=== PATIENT | female | born 1960 | race Caucasian/White ===

== ENCOUNTER 2016-10-08 21:36 | Inpatient (IN) | payer OTHER ==
[~2016-10-08] VITALS: Ht 167.6 cm; Wt 89.6 kg
[~2016-10-08 21:36] MED LIST: DIPH2%T PO; EPIP0.3I IM; GLUCTAB PO; MEDR4PAK3 PO; MULT-65 PO; PROBCAP4 PO; RANI150 PO; TELM20 PO; ZOFR4TAB3 SL
[2016-10-08 21:58] VITALS: BP 144/84; PULSE 77; RESP 18; TEMP 98.3; O2SAT 98
[2016-10-08 22:01] VITALS: BP 144/84; PULSE 77; RESP 18; TEMP 98.3; O2SAT 98
[2016-10-08] MEDS ORDERED: MULTTAB67 PO (22:15)
[2016-10-08] MEDS ORDERED: SODIUM CHLORIDE 0.9% FLUSH 10 ML FLUSH IVF PRN (22:15)
[2016-10-08] MEDS ORDERED: ASPIRIN 325 MG TAB PO ONE (22:15)
[2016-10-08] MEDS ORDERED: DIPH25TA2 PO (22:15)
[2016-10-08] MEDS ORDERED: EPIN1INJ17 IM (22:15)
[2016-10-08] MEDS ORDERED: METF500T PO (22:15)
[2016-10-08] MEDS ORDERED: TELM5TAB PO (22:16)
[2016-10-08] MEDS ORDERED: LACTCAP8 PO (22:16)
[2016-10-08 22:19] VITALS: O2SAT 96
[2016-10-08 22:21] LABS: AUTOMATED NEUTROPHIL # 3.2 TH/MM3 (1.8-7.7); BASOPHIL % 0.3 % (0.0-2.0); EOSINOPHIL # 0.3 TH/MM3 (0-0.4); EOSINOPHIL % 4.3 % (0.0-4.0); HEMATOCRIT 40.8 % (35.0-46.0); HEMO FLAGS DIFF FINAL; LYMPH % 35.1 % (9.0-44.0); LYMPHOCYTE # 2.1 TH/MM3 (1.0-4.8); MEAN CELL VOLUME 82.6 FL (80.0-100.0); MEAN CORPUSCULAR HEMOGLOBIN 28.3 PG (27.0-34.0); MEAN CORPUSCULAR HGB CONC 34.3 % (32.0-36.0); MONO % 8.4 % (0.0-8.0); NEUT % 51.9 % (16.0-70.0); PLATELET COUNT 198 TH/MM3 (150-450); RED BLOOD COUNT 4.95 MIL/MM3 (4.00-5.30); RED CELL DISTRIBUTION WIDTH 12.9 % (11.6-17.2); WHITE BLOOD COUNT 6.1 TH/MM3 (4.0-11.0)
--- NOTE | 2016-10-08 22:28 | PD ---
HPI Chief Complaint: Chest Pain Time Seen by Provider: 21:52 Travel History International Travel<30 days: No Contact w/Intl Traveler<30days: No Traveled to known affect area: No History of Present Illness HPI This 56-year-old female says she been having some episodes in the past week. She has periods where she has a fullness in the lower sternal area associated with labored breathing. She can't clearly related to exertion or any other activity. It is not pleuritic in nature. She does not recall having this before. She has no known history of heart disease. Her mother had rheumatic heart disease. She does have diabetes. She does not smoke. She was started on fenofibrate a month ago because of high triglycerides. The episodes last about 15 minutes and resolved spontaneously. The patient does have a history of diabetes for which she takes metformin. PFSH Past Medical History High Cholesterol: Yes Diabetes: Yes (PT STATES SHE TAKES METFORMIN) Patient Takes Glucophage: Yes (METFORMIN) Diminished Hearing: No GERD: Yes Hypertension: Yes Immunizations Current: No Pneumonia: Yes Tetanus Vaccination: < 5 Years Influenza Vaccination: No ?: Unknown Menopausal: Yes : 7 Para: 5 Miscarriage: 2 Past Surgical History Section: Yes (X1) Cholecystectomy: Yes Gynecologic Surgery: Yes (, ENDOMETRIAL UTERINE ABLATION) Family History Family Hypercholesterolemia: Yes (MOTHER) Social History Alcohol Use: Yes (OCCAS) Tobacco Use: No Substance Use: No Allergies-Medications (Allergen,Severity, Reaction): Coded Allergies: Labetalol (Verified Allergy, Severe, LIVER ISSUES, 10/08/16) Methyldopa (Verified Allergy, Severe, LIVER ISSUES, 10/08/16) Morphine (Verified Allergy, Severe, SWELLING, 10/08/16) Omeprazole (Unverified Allergy, Severe, Hives, 10/08/16) itching Ranitidine (Verified Allergy, Severe, Hives, 10/08/16) Uncoded Allergies: LOVAZA (Adverse Reaction, Severe, 07/14/14) ELEVATED LIVER ENZYMES Reported Meds & Prescriptions Reported Meds & Active Scripts Active Reported Telmisartan 20 Mg Tab 20 Mg PO DAILY Probiotic (Lactobacillus Acidophilus) 1 Cap Cap 1 Cap PO BID Multiple Vitamin 1 Tab 1 Tab PO DAILY Metformin (Metformin HCl) 500 Mg Tab 500 Mg PO BIDPC With meals Epinephrine Inj (Epinephrine) 0.3 Mg/0.3 Ml Pfpen 0.3 Mg IM ONCE PRN Diphenhydramine (Diphenhydramine HCl) 25 Mg Tab 25 Mg PO Q6H PRN Review of Systems General / Constitutional: No: Fever, Chills Eyes: No: Diploplia, Blurred Vision HENT: No: Headaches, Vertigo Cardiovascular: Positive: Chest Pain or Discomfort, No: Palpitations, Irregular Rhythm, Syncope Respiratory: Positive: Shortness of Breath, No: Cough Gastrointestinal: No: Nausea, Vomiting Genitourinary: No: Urgency, Frequency Musculoskeletal: No: Myalgias, Arthralgias Skin: No Rash, No Itching Physical Exam Narrative GENERAL: Well-developed female SKIN: Focused skin assessment warm/dry. HEAD: Atraumatic. Normocephalic. EYES: Pupils equal and round. No scleral icterus. No injection or drainage. ENT: No nasal bleeding or discharge. Mucous membranes pink and moist. NECK: Trachea midline. No JVD. CARDIOVASCULAR: Regular rate and rhythm. No murmur appreciated. RESPIRATORY: No accessory muscle use. Clear to auscultation. Breath sounds equal bilaterally. GASTROINTESTINAL: Abdomen soft, non-tender, nondistended. Hepatic and splenic margins not palpable. MUSCULOSKELETAL: No obvious deformities. No clubbing. No cyanosis. No edema. NEUROLOGICAL: Awake and alert. No obvious cranial nerve deficits. Motor grossly within normal limits. Normal speech. PSYCHIATRIC: Appropriate mood and affect; insight and judgment normal. Data Data Last Documented VS Vital Signs Date Time Temp Pulse Resp B/P Pulse Ox O2 Delivery O2 Flow Rate FiO2 10/08/16 22:22 96 Room Air 10/08/16 22:01 77 18 10/08/16 22:01 98.3 144/84 Orders Electrocardiogram (10/08/16 22:10) Basic Metabolic Panel (Bmp) (10/08/16 22:10) Complete Blood Count With Diff (10/08/16 22:10) Magnesium (Mg) (10/08/16 22:10) Prothrombin Time / Inr (Pt) (10/08/16 22:10) Act Partial Throm Time (Ptt) (10/08/16 22:10) Troponin I (10/08/16 22:10) Chest, Single Ap (10/08/16 22:10) Ecg Monitoring (10/08/16 22:10) Iv Access Insert/Monitor (10/08/16 22:10) Oximetry (10/08/16 22:10) Oxygen Administration (10/08/16 22:10) Aspirin (Aspirin) (10/08/16 22:15) Sodium Chloride 0.9% Flush (Ns Flush) (10/08/16 22:15) Labs Laboratory Tests Test 10/08/16 22:10 White Blood Count 6.1 TH/MM3 Red Blood Count 4.95 MIL/MM3 Hemoglobin 14.0 GM/DL Hematocrit 40.8 % Mean Corpuscular Volume 82.6 FL Mean Corpuscular Hemoglobin 28.3 PG Mean Corpuscular Hemoglobin 34.3 % Concent Red Cell Distribution Width 12.9 % Platelet Count 198 TH/MM3 Mean Platelet Volume 7.9 FL Neutrophils (%) (Auto) 51.9 % Lymphocytes (%) (Auto) 35.1 % Monocytes (%) (Auto) 8.4 % Eosinophils (%) (Auto) 4.3 % Basophils (%) (Auto) 0.3 % Neutrophils # (Auto) 3.2 TH/MM3 Lymphocytes # (Auto) 2.1 TH/MM3 Monocytes # (Auto) 0.5 TH/MM3 Eosinophils # (Auto) 0.3 TH/MM3 Basophils # (Auto) 0.0 TH/MM3 CBC Comment DIFF FINAL Differential Comment MDM Medical Decision Making Medical Screen Exam Complete: Yes Emergency Medical Condition: Yes Medical Record Reviewed: Yes Differential Diagnosis Differential includes coronary artery disease, atypical chest pain, chest pain and GI origin Narrative Course EKG shows normal sinus rhythm Derrell Pretty MD Oct 08, 2016 22:28
[2016-10-08 22:30] LABS: CHLORIDE 106 MEQ/L (98-107); POTASSIUM 3.5 MEQ/L (3.5-5.1); SODIUM (NA) 141 MEQ/L (136-145)
[2016-10-08 22:33] LABS: ANION GAP 7 MEQ/L (5-15); BICARBONATE 27.9 MEQ/L (21.0-32.0); BLOOD UREA NITROGEN 13 MG/DL (7-18); MAGNESIUM 1.7 MG/DL (1.5-2.5)
[2016-10-08 22:36] LABS: APTT (PATIENT) 25.4 SEC (24.3-30.1); PROTHROMBIN TIME - PATIENT 10.5 SEC (9.8-11.6)
[2016-10-08 22:37] LABS: GLOMERULAR FILTRATION RATE 82 ML/MIN (>89)
--- NOTE | 2016-10-08 22:44 | RADRPT ---
EXAM DATE/TIME: 10/08/2016 22:28 [facility] COMPARISON: No previous studies available for comparison. INDICATIONS : Chest pressure, shortness of breath for 24 hours MEDICAL HISTORY : None. SURGICAL HISTORY : None. ENCOUNTER: Initial ACUITY: 1 day PAIN SCORE: 0/10 LOCATION: Bilateral chest FINDINGS: A single view of the chest demonstrates the lungs to be symmetrically aerated without evidence of mas s, infiltrate or effusion. The cardiomediastinal contours are unremarkable. Osseous structures are intact. CONCLUSION: No acute disease. Jai Franklin MD FACR on October 08, 2016 at 22:42 Board Certified Radiologist. This report was verified electronically.
[2016-10-08] MEDS ORDERED: SODIUM CHLORIDE 0.9% FLUSH 10 ML FLUSH IV FLUSH PRN (23:30)
[2016-10-08] MEDS ORDERED: ACETAMINOPHEN/HYDROcodone 325 MG/7.5 MG TAB PO PRN (23:30)
[2016-10-08] MEDS ORDERED: NITROGLYCERIN 0.4 MG SL 25 TABS/BTL SL PRN (23:30)
[2016-10-08] MEDS ORDERED: ACETAMINOPHEN 500 MG CPLT PO PRN (23:30)
[2016-10-08] MEDS ORDERED: ACETAMINOPHEN/HYDROcodone 325 MG/10 MG TAB PO PRN (23:30)
[2016-10-08] MEDS ORDERED: GLUCAGON 1 MG/ML VIAL OTHER PRN (23:30)
[2016-10-08] MEDS ORDERED: ONDANSETRON HCL 4 MG/2 ML VIAL IV PRN (23:30)
[2016-10-08] MEDS ORDERED: DEXTROSE 50% IN WATER 50 ML VIAL(D50) IV PRN (23:30)
[2016-10-09] VITALS (13 sets, daily range): BP systolic 110–134; BP diastolic 70–86; PULSE 59–80; RESP 18–20; TEMP 96.1–97.9; O2SAT 94–99
[2016-10-09 00:03] LABS: CREATINE KINASE 119 U/L (26-192)
[2016-10-09 03:16] LABS: CREATINE KINASE 117 U/L (26-192)
[2016-10-09 03:28] LABS: CKMB 2.1 NG/ML (0.5-3.6)
[2016-10-09] MEDS: INSULIN ASPART SUPPLEMENTAL SCALE SQ SCH ×4 (06:24→21:00)
--- NOTE | 2016-10-09 07:14 | HHI.HP ---
[facility] Admission Diagnosis CHEST PAIN Diagnoses: (1) Chest pain Diagnosis: Principal (2) Hypertension (3) Hyperlipidemia (4) Diabetes Chief Complaint: Chest discomfort Travel History International Travel<30 Days: No Contact w/Intl Traveler <30 Da: No Traveled to Known Affected Are: No History of Present Illness Written by Garrett Shrestha, acting as scribe for Dr. Erazo on 10/09/16 at 09: 46. This note was transcribed by scribe Garrett POE. I, Dr. Inna Erazo personally performed the history, physical exam, and medical decision making; and confirmed the accuracy of the information in the transcribed note. Authenticated by Dr. Inna Erazo on 10/09/16 at 09:46. 56-year-old female with known history of hypertension, hypokalemia, diabetes, family history of heart disease who presented to the hospital because of chest discomfort. Patient states that over the last week she's been having episodes of chest discomfort which she places her hand over the middle part of her chest and states that the discomfort is located there without any radiation to neck, back, shoulder, arm. She has a hard time describing the discomfort other than she states it's like a pressure type sensation that takes her breath away. She is able to breathe there is no shortness of breath, however she does have dyspnea. It usually lasts for 20 seconds at a time and happening one time daily for the last week. She states that she had another episode yesterday that lasted up to 20 minutes. She called her primary medical doctor's office who did not have an appointment for her and notify her if it continued happens she needs to go to the hospital for evaluation. The patient states that she sits down and relaxes that the discomfort goes away on its own. It does not happen during exertion. She denies any nausea, vomiting, diaphoresis, lightheadedness, dizziness. She states that he exercises approximate 5 times weekly. The patient has never underwent any cardiac stress testing. Patient does have increased risk factors for coronary artery disease and is recommended by the ER physician that the patient be observed in the chest pain center for further evaluation. Review of Systems Constitutional: DENIES: Diaphoretic episodes, Fatigue, Fever, Weight gain, Weight loss, Chills, Dizziness, Change in appetite, Night Sweats Eyes: DENIES: Blurred vision, Diplopia, Eye inflammation, Eye pain, Vision loss , Double Vision Ears, nose, mouth, throat: DENIES: Hearing loss, Vertigo, Nasal discharge, Throat pain, Ear Pain, Running Nose, Sinus Pain Respiratory: COMPLAINS OF: Shortness of breath, DENIES: Apneas, Cough, Snoring , Wheezing, Hemoptysis, Sputum production Cardiovascular: COMPLAINS OF: Chest pain, DENIES: Palpitations, Syncope, Dyspnea on Exertion, Lower Extremity Edema, Orthopnea Gastrointestinal: DENIES: Abdominal pain, Black stools, Bloody stools, Constipation, Diarrhea, Nausea, Vomiting, Difficulty Swallowing, Anorexia Neurologic: DENIES: Abnormal gait, Headache, Localized weakness, Paresthesias, Seizures, Speech Problems, Tremor, Poor Balance Psychiatric: DENIES: Anxiety, Confusion, Mood changes, Depression, Hallucinations, Agitation, Suicidal Ideation, Homicidal Ideation, Delusions Past Family Social History Past Medical History Hypertension Hyperlipidemia Diabetes Gastroesophageal reflux Degenerative disc disease Past Surgical History Cholecystectomy Bilateral carpal tunnel surgery Endometrial ablation Reported Medications Reported Meds & Active Scripts Active Reported Telmisartan 20 Mg Tab 20 Mg PO DAILY Probiotic (Lactobacillus Acidophilus) 1 Cap Cap 1 Cap PO BID Multiple Vitamin 1 Tab 1 Tab PO DAILY Metformin (Metformin HCl) 500 Mg Tab 500 Mg PO BIDPC With meals Epinephrine Inj (Epinephrine) 0.3 Mg/0.3 Ml Pfpen 0.3 Mg IM ONCE PRN Diphenhydramine (Diphenhydramine HCl) 25 Mg Tab 25 Mg PO Q6H PRN Allergies: Coded Allergies: Labetalol (Verified Allergy, Severe, LIVER ISSUES, 10/08/16) Methyldopa (Verified Allergy, Severe, LIVER ISSUES, 10/08/16) Morphine (Verified Allergy, Severe, SWELLING, 10/08/16) Omeprazole (Unverified Allergy, Severe, Hives, 10/08/16) itching Ranitidine (Verified Allergy, Severe, Hives, 10/08/16) Uncoded Allergies: LOVAZA (Adverse Reaction, Severe, 07/14/14) ELEVATED LIVER ENZYMES Family History Reviewed is significant for mother with heart disease, myocardial infarction, aunt with breast cancer, father was a smoker and from lung cancer Social History Patient denies any tobacco or illicit drug use. Does drink alcohol occasionally Physical Exam Vital Signs Vital Signs Date Time Temp Pulse Resp B/P Pulse Ox O2 Delivery O2 Flow Rate FiO2 10/09/16 05:36 96.9 60 18 118/72 98 10/09/16 02:15 98 21 10/09/16 00:45 96.8 70 18 132/77 99 10/09/16 00:31 71 18 98 10/09/16 00:00 71 18 110/71 98 Room Air 10/08/16 22:22 96 Room Air 10/08/16 22:19 96 10/08/16 22:01 77 18 98 Room Air 10/08/16 22:01 98.3 77 18 144/84 98 Room Air 10/08/16 21:58 98.3 77 18 144/84 98 Physical Exam GENERAL: Well-developed, well-nourished, in no acute distress. alert and orientated HEENT: Head is normocephalic without any lesions or masses noted. Facial features are symmetric. Eyes: Pupils equal round reactive to light. Extraocular muscles are intact. Conjunctivae were clear. Oropharyngeal: Pharynx without any erythema edema. Tongue is midline without deviation. Buccal mucosa is moist without any masses or lesions NECK: Supple without any masses. Trachea midline no deviation. No JVD, no bruits are appreciated CARDIAC: Regular rhythm, regular rate. S1/S2 are heard. No murmurs gallops or rubs. LUNGS: Clear to auscultation bilaterally. No wheeze, rhonchi or rales. No use of accessory muscles on inspiration or expiration. ABDOMEN: Soft, nontender. Nondistended. Bowel sounds heard in all 4 quadrants. No organomegaly or masses. Negative rebound, negative guarding EXTREMITIES: No edema, pulses are equal bilaterally. No cyanosis or clubbing NEUROLOGY: Mood and affect appear appropriate. Cranial nerves II through XII grossly intact. Muscle strength 5/5 in upper and lower extremities bilaterally. Deep tendon reflexes are 2+ in upper and lower extremities bilaterally. Laboratory Laboratory Tests Test 10/08/16 10/08/16 10/09/16 22:10 23:40 02:20 White Blood Count 6.1 Red Blood Count 4.95 Hemoglobin 14.0 Hematocrit 40.8 Mean Corpuscular Volume 82.6 Mean Corpuscular Hemoglobin 28.3 Mean Corpuscular Hemoglobin 34.3 Concent Red Cell Distribution Width 12.9 Platelet Count 198 Mean Platelet Volume 7.9 Neutrophils (%) (Auto) 51.9 Lymphocytes (%) (Auto) 35.1 Monocytes (%) (Auto) 8.4 Eosinophils (%) (Auto) 4.3 Basophils (%) (Auto) 0.3 Neutrophils # (Auto) 3.2 Lymphocytes # (Auto) 2.1 Monocytes # (Auto) 0.5 Eosinophils # (Auto) 0.3 Basophils # (Auto) 0.0 CBC Comment DIFF FINAL Differential Comment Prothrombin Time 10.5 Prothromb Time International 1.0 Ratio Activated Partial 25.4 Thromboplast Time Sodium Level 141 Potassium Level 3.5 Chloride Level 106 Carbon Dioxide Level 27.9 Anion Gap 7 Blood Urea Nitrogen 13 Creatinine 0.74 Estimat Glomerular Filtration 82 Rate Random Glucose 252 Calcium Level 9.4 Magnesium Level 1.7 Troponin I LESS THAN 0.02 LESS THAN 0.02 LESS THAN 0.02 Total Creatine Kinase 119 117 Creatine Kinase MB 2.0 2.1 Result Diagram: 10/08/16220910/08/162209 Imaging Last Impressions Chest X-Ray 10/08/162209 Signed Impressions: Service Date/Time: Saturday, October 08, 2016 22:28 - CONCLUSION: No acute disease. Jai Franklin MD FACR Assessment and Plan Assessment and Plan 56-year-old female who presented with chest pressure Chest pain Patient with increased risk factors include age, hypertension, hyponatremia, diabetes, family history of heart disease Patient had been ruled out for acute coronary event with serial cardiac enzymes have remained negative Serial EKGs show sinus rhythm with nonspecific ST-T changes without any acute changes Exercise stress test was interpreted by Dr. Thomas. He indicates this is a positive stress test and because of her presenting symptoms the patient should be admitted with cardiology consultation. Continue oxygen, aspirin, nitroglycerin as needed, Wells as needed for pain Consult cardiology Hypertension Blood pressure stable Continue home medications Hyperlipidemia Patient is on fenofibrate at home Obtain lipid panel Diabetes Accu-Cheks with sliding scale insulin DVT prevention Sequential compression devices Discussed Condition With Dr. Thomas, patient, at bedside Problem Qualifiers (1) Chest pain: (2) Hypertension: Qualified Code: I15.8 - Other secondary hypertension (3) Hyperlipidemia: Qualified Code: E78.5 - Hyperlipidemia, unspecified hyperlipidemia type (4) Diabetes: Qualified Code: E11.8 - Type 2 diabetes mellitus with complication, without long-term current use of insulin Garrett Shrestha Oct 09, 2016 07:14 Inna Erazo MD Oct 09, 2016 12:47
[2016-10-09] MEDS: ASPIRIN 325 MG TAB PO SCH (09:32)
[2016-10-09] MEDS: LOSARTAN 25 MG TAB PO SCH (09:32)
[2016-10-09] MEDS: SODIUM CHLORIDE 0.9% FLUSH 10 ML FLUSH IV FLUSH SCH ×2 (09:32→21:00)
--- NOTE | 2016-10-09 11:54 | TR ---
Date Performed: 10/09/2016 Time Performed: 10:02:00 DOCTOR: Tapan Thomas DRUG LIST: CLINICAL HISTORY: REASON FOR TEST: REASON FOR ENDING: Completed Protocol OBSERVATION: Chest Pain: None CONCLUSION: Patient tolerated BENJAMÍN protocol with Total Exercise Time=6:01 Maximum BZ=004 % Max HR Achieved=88.0% Maximum SH=328/84, Testing stopped secondary to goals acheived. Patient had mild fl at slow upsloping ST depressions prior to starting procedure, did improve mildly upon starting proced ure. During peak exercise, patient had flat slow upsloping ST depressed segments in inferior lateral leads. patient was asymptomatic during exercise, frequent PVC's noted. HR and BP appropriate response to exercise. Recovery period, patient still with mild flat, slow upsloping St segments, Patient stil l asymptomatic. more frequent PVC's until HR returned to baseline, then no observed PVC's. BP returne d to baseline COMMENTS: POSITIVE STUDY WITH DOWNSLOPING ST SEGMENTS WORSTENING WITH EXERCISE IN A PATIENT WITH RISK FACTORS AND INTERMITTANT CP.
[2016-10-09 14:07] LABS: HDL CHOLESTEROL 48.3 MG/DL (40.0-60.0)
--- NOTE | 2016-10-09 15:27 | EKG ---
Date Performed: 10/09/2016 Time Performed: 07:19:35 PTAGE: 56 years EKG: SINUS BRADYCARDIA NONSPECIFIC ST & T-WAVE ABNORMALITY BORDERLINE ECG PREVIOUS TRACING : 10/09/2016 02.31 Compared to prior tracing no significant change DOCTOR: Paul Ayala Interpretating Date/Time 10/09/2016 15:25:53
--- NOTE | 2016-10-09 15:48 | EKG ---
Date Performed: 10/09/2016 Time Performed: 02:31:03 PTAGE: 56 years EKG: Sinus rhythm MODERATE INTRAVENTRICULAR CONDUCTION DELAY NONSPECIFIC ST & T-WAVE ABNORMALITY BORDERLINE ECG PREVIOUS TRACING : 10/08/2016 23.43 Compared to prior tracing no significant change DOCTOR: Paul Ayala Interpretating Date/Time 10/09/2016 15:46:40
--- NOTE | 2016-10-09 16:03 | EKG ---
Date Performed: 10/08/2016 Time Performed: 23:43:56 PTAGE: 56 years EKG: Sinus rhythm NONSPECIFIC ST & T-WAVE ABNORMALITY BORDERLINE ECG PREVIOUS TRACING : 10/08/2016 22.04 Compared to prior tracing no significant change DOCTOR: Paul Ayala Interpretating Date/Time 10/09/2016 16:02:21
--- NOTE | 2016-10-09 16:11 | EKG ---
Date Performed: 10/08/2016 Time Performed: 22:04:02 PTAGE: 56 years EKG: Sinus rhythm MINIMAL ST DEPRESSION BORDERLINE ECG Compared to the PREVIOUS TRACING from 06/27/99, no significant change DOCTOR: Paul Ayala Interpretating Date/Time 10/09/2016 16:09:30
--- NOTE | 2016-10-09 16:58 | MB ---
cc: JAMILAH HOLLIDAY MD DATE OF CONSULTATION 10/09/16 REASON FOR CONSULTATION Atypical chest pain and abnormal exercise treadmill test. HISTORY OF PRESENT ILLNESS The patient is a very pleasant 56-year woman with no prior cardiac history who for the last week or so has had symptoms which she describes as a "dropping feeling in her chest" lasting typically that 10 minutes and seemed to be associated with eating. She did not have any significant symptoms during her water aerobics or other physical activity. Yesterday, she had these symptoms which lasted longer than her prior episodes which were happening on a daily basis. This most recent episode was over 20 minutes and she presented to the emergency department, ruled out for AK and then underwent an exercise treadmill test without nuclear imaging. The treadmill EKG did show accentuation of her baseline EKG changes to about [address] changes with PVCs seen in recovery. The patient did not have any chest pain at all or reproduction of her symptoms during her treadmill test. Currently, the patient is asymptomatic denying any residual symptoms. She does not truly have chest pain, just the aforementioned dropping sensation with some shortness of breath at the time, no lightheadedness, dizziness or syncope. PAST MEDICAL HISTORY 1. Hypertension, 2. Diabetes, 3. Obesity. MEDICATIONS Current 1. Aspirin 325 mg daily. 2. Cozaar 25 mg daily. ALLERGIES LABETALOL METHYLDOPA MORPHINE OMEPRAZOLE RANITIDINE PHYSICAL EXAMINATION VITAL SIGNS: Afebrile, pulse 67, respiratory rate 18, BP 134/83, satting 94 on room air. GENERAL: A Pleasant, obese woman in no distress. NECK: No JVD. LUNGS: Clear to auscultation bilaterally. CARDIOVASCULAR: Regular rate and rhythm. No murmurs appreciated. ABDOMEN: Benign. EXTREMITIES: No edema. LABORATORY DATA White count 6.1, hematocrit 40.8, platelets 198. Sodium 141, potassium 2.5, chloride 106, bicarb 27.9, BUN 13, creatinine 0.74, glucose 252. Cardiac enzymes are negative x3. LDL is 113, triglycerides 253. CARDIOLOGY STUDIES EKG shows sinus rhythm with diffuse though nonspecific ST changes. Treadmill test is as detailed above. IMPRESSION AND PLAN Abnormal exercise treadmill test with atypical chest pain. I discussed these findings at length with the patient. They wish to forego a nuclear stress test in lieu of direct cardiac catheterization. I do think this is reasonable, particularly given the patient's body habitus which will predispose to a false positive nuclear stress test anyway or at least that would have enough attenuation artifact which could cloud the issue. I did also explain to the patient that it is certainly possible she could have coronary disease which is not responsible for her symptoms and they understand this fact. I will have her transferred [facility] and my colleague, Dr. Ayala, will plan for cardiac catheterization Tuesday morning or sooner should the clinical condition warrant. Thank you again for the opportunity to participate in this patient's care. MD MAGDI Valentin/ /3:49 PM /4:55 PM
[2016-10-10] VITALS (7 sets, daily range): BP systolic 116–154; BP diastolic 68–88; PULSE 61–72; RESP 18–20; TEMP 96.7–98.2; O2SAT 95–99
--- NOTE | 2016-10-10 09:32 | ECHRPT ---
Indication: Chest pain, unspecified CONCLUSIONS Normal left ventricular size and wall thickness. The left ventricular systolic function is normal wi th an estimated ejection fraction in the range of 60-65%. Left ventricular diastolic function parameters a re normal. Mild aortic valve regurgitation. Mild mitral valve regurgitation. BP: / HR: 75 Rhythm: Sinus MEASUREMENTS (Male / Female) Normal Values Technical Quality:Fair 2D ECHO LV Diastolic Diameter PLAX 5.2 cm 4.2 - 5.9 / 3.9 - 5.3 cm LV Systolic Diameter PLAX 4.0 cm IVS Diastolic Thickness 0.9 cm 0.6 - 1.0 / 0.6 - 0.9 cm LVPW Diastolic Thickness 0.9 cm 0.6 - 1.0 / 0.6 - 0.9 cm LV Relative Wall Thickness 0.3 LVOT Diameter 2.0 cm M-MODE Aortic Root Diameter MM 3.2 cm LA Systolic Diameter MM 3.2 cm LA Ao Ratio MM 1.0 AV Cusp Separation MM 2.1 cm DOPPLER AV Peak Velocity 148.0 cm/s AV Peak Gradient 8.8 mmHg AI Peak Velocity 444.5 cm/s AI Peak Gradient 79.0 mmHg AI Pressure Half Time 626.0 ms LVOT Peak Velocity 107.0 cm/s LVOT Peak Gradient 4.6 mmHg AV Area Cont Eq pk 2.3 cm MR Peak Velocity 448.5 cm/s MR Peak Gradient 80.5 mmHg Mitral E Point Velocity 87.4 cm/s Mitral A Point Velocity 94.8 cm/s Mitral E to A Ratio 0.9 LV E' Lateral Velocity 6.7 cm/s Mitral E to LV E' Lateral Ratio 13.0 LV E' Septal Velocity 6.0 cm/s Mitral E to LV E' Septal Ratio 14.5 PV Peak Velocity 97.7 cm/s PV Peak Gradient 3.8 mmHg FINDINGS LEFT VENTRICLE Normal left ventricular size and wall thickness. The left ventricular systolic function is normal wi th an estimated ejection fraction in the range of 60-65%. Left ventricular diastolic function parameters a re normal. RIGHT VENTRICLE Normal right ventricular size and systolic function. LEFT ATRIUM The left atrial size is normal. RIGHT ATRIUM The right atrial size is normal. ATRIAL SEPTUM Normal atrial septal thickness without atrial level shunting by limited color doppler interrogation. AORTA The aortic root and proximal ascending aorta are normal in size on limited imaging. MITRAL VALVE Mild mitral valve regurgitation. AORTIC VALVE Mild aortic valve regurgitation. TRICUSPID VALVE Structurally normal tricuspid valve. No tricuspid valve stenosis or regurgitation. PULMONARY VALVE The pulmonary valve is not well visualized. VESSELS The inferior vena cava is normal in size. PERICARDIUM No pericardial effusion. Henri Montana MD (Electronically Signed) Final Date:10 October 2016 09:31
[2016-10-10] MEDS: ASPIRIN 325 MG TAB PO SCH (09:41)
[2016-10-10] MEDS: LOSARTAN 25 MG TAB PO SCH (09:41)
[2016-10-10] MEDS: SODIUM CHLORIDE 0.9% FLUSH 10 ML FLUSH IV FLUSH SCH ×2 (09:42→21:22)
[2016-10-10] MEDS: INSULIN ASPART SUPPLEMENTAL SCALE SQ SCH ×3 (10:54→21:00)
--- NOTE | 2016-10-10 11:49 | HHI.PR ---
Subjective Remarks Seen earlier today. Patient says she did not have any chest luke overnight. She experienced some chest pain last night. No sob, diaphoresis , nausea or lightheadedness. No fever or chills. No cough. Says she was not able to sleep last night and she would like to have a sleeping aid at night Objective Vitals Vital Signs Date Time Temp Pulse Resp B/P Pulse Ox O2 Delivery O2 Flow Rate FiO2 10/10/16 08:00 97.4 65 18 136/85 98 10/10/16 05:34 98.2 66 20 129/79 98 10/10/16 00:00 96.7 61 18 116/68 99 10/09/16 20:00 97.9 63 20 118/70 98 10/09/16 19:58 67 10/09/16 16:00 97.8 73 18 134/86 95 10/09/16 15:00 80 10/09/16 12:00 96.3 67 18 134/83 94 10/09/16 11:48 97 I/O 10/09/16 10/09/16 10/09/16 10/10/16 10/10/16 10/10/16 07:00 15:00 23:00 07:00 15:00 23:00 Intake Total 0 ml 240 ml 240 ml Output Total 2 ml Balance 0 ml 240 ml 238 ml Intake Oral 0 ml 240 ml 240 ml Output Urine Total 2 ml Stool Total 0 ml # Voids 2 2 5 # Bowel Movements 0 3 Result Diagram: 10/08/16220910/08/162209 Imaging Last Impressions Chest X-Ray 10/08/162209 Signed Impressions: Service Date/Time: Saturday, October 08, 2016 22:28 - CONCLUSION: No acute disease. Jai Franklin MD FACR Objective Remarks GENERAL: Very pleasant 56 yo F, well-developed, well-nourished, in no acute distress. alert and orientated CARDIAC: Regular rhythm, regular rate. S1/S2 are heard. No murmurs gallops or rubs. LUNGS: Clear to auscultation bilaterally. No wheeze, rhonchi or rales. No use of accessory muscles on inspiration or expiration. ABDOMEN: Soft, nontender. Nondistended. Bowel sounds heard in all 4 quadrants. No organomegaly or masses. Negative rebound, negative guarding EXTREMITIES: No edema, pulses are equal bilaterally. No cyanosis or clubbing NEUROLOGY: Mood and affect appear appropriate. Cranial nerves II through XII grossly intact. Muscle strength 5/5 in upper and lower extremities bilaterally. Deep tendon reflexes are 2+ in upper and lower extremities bilaterally. A/P Problem List: (1) Chest pain ICD Code: R07.9 Status: Acute (2) Hypertension ICD Code: I10 Status: Acute (3) Hyperlipidemia ICD Code: E78.5 Status: Acute (4) Diabetes ICD Code: E11.9 Status: Acute Assessment and Plan 56-year-old female who presented with chest pressure Chest pain Patient with increased risk factors include age, hypertension, hyponatremia, diabetes, family history of heart disease Patient had been ruled out for acute coronary event with serial cardiac enzymes have remained negative Serial EKGs show sinus rhythm with nonspecific ST-T changes without any acute changes Exercise stress test was interpreted by Dr. Thomas. He indicates this is a positive stress test and because of her presenting symptoms the patient should be admitted with cardiology consultation. Continue oxygen, aspirin, nitroglycerin as needed, [place] as needed for pain Consult cardiology, recommends cardiac cath. Transfer patient to [facility]. Keep NPO overnight plan for cardiac cath on 10/11 Hypertension Blood pressure stable Continue home medications Hyperlipidemia Patient is on fenofibrate at home Obtain lipid panel Diabetes Accu-Cheks with sliding scale insulin DVT prevention Sequential compression devices Discussed Condition With Patient, nurse, /family at bedside Problem Qualifiers (1) Chest pain: (2) Hypertension: Qualified Code: I15.8 - Other secondary hypertension (3) Hyperlipidemia: Qualified Code: E78.5 - Hyperlipidemia, unspecified hyperlipidemia type (4) Diabetes: Qualified Code: E11.8 - Type 2 diabetes mellitus with complication, without long-term current use of insulin Inna Erazo MD Oct 10, 2016 11:49 Inna Erazo MD Oct 10, 2016 11:49
[2016-10-10] MEDS ORDERED: TEMAZEPAM 15 MG CAP PO PRN (12:15)
--- NOTE | 2016-10-10 17:17 | PD.CARD.PN ---
Subjective Subjective Remarks Pt feels well, no cp since last night Objective Medications Administered Medications Medications (Trade) Dose Ordered Sig/Sky Route PRN Reason Start Time Stop Time Status Last Admin Dose Admin Sodium Chloride (NS Flush) 2 ml BID IV FLUSH 10/09/16 09:00 10/10/16 09:42 Nitroglycerin (Nitrostat Sl) 0.4 mg Q5M PRN SL CHEST PAIN 10/08/16 23:30 10/09/16 17:15 Aspirin (Aspirin) 325 mg DAILY PO 10/09/16 09:00 10/10/16 09:41 Losartan Potassium (Cozaar) 25 mg DAILY PO 10/09/16 09:00 10/10/16 09:41 Vital Signs / I&O Vital Signs Date Time Temp Pulse Resp B/P Pulse Ox O2 Delivery O2 Flow Rate FiO2 10/10/16 12:00 97.5 68 18 123/74 98 10/10/16 08:00 97.4 65 18 136/85 98 10/10/16 05:34 98.2 66 20 129/79 98 10/10/16 00:00 96.7 61 18 116/68 99 10/09/16 20:00 97.9 63 20 118/70 98 10/09/16 19:58 67 I/O 10/09/16 10/09/16 10/09/16 10/10/16 10/10/16 10/10/16 07:00 15:00 23:00 07:00 15:00 23:00 Intake Total 0 ml 240 ml 240 ml Output Total 2 ml Balance 0 ml 240 ml 238 ml Intake Oral 0 ml 240 ml 240 ml Output Urine Total 2 ml Stool Total 0 ml # Voids 2 2 5 # Bowel Movements 0 3 Physical Exam GENERAL: This is a well-nourished, well-developed patient, in no apparent distress. CARDIOVASCULAR: Regular rate and rhythm without murmurs, gallops, or rubs. RESPIRATORY: Clear to auscultation. Breath sounds equal bilaterally. No wheezes , rales, or rhonchi. GASTROINTESTINAL: Abdomen soft, non-tender, nondistended. Normal active bowel sounds MUSCULOSKELETAL: Extremities without clubbing, cyanosis, or edema. NEURO: Alert & Oriented x4 to person, place, time, situation. Moves all ext x4 Imaging Last Impressions Chest X-Ray 7/7/17 2210 Signed Impressions: Service Date/Time: Saturday, October 08, 2016 22:28 - CONCLUSION: No acute disease. Jai Franklin MD FACR Assessment and Plan Problem List: (1) Chest pain Assessment and Plan: added low dose imdur and norvasc for dual anti-anginals ( alg to labetalol); doing well since last night. (2) Abnormal ECG during exercise stress test Assessment and Plan: for Cath tomorrow Problem Qualifiers (1) Chest pain: Henri Montana MD Oct 10, 2016 17:17
[2016-10-10] MEDS ORDERED: PILL SPLITTER OTHER PRN (17:30)
[2016-10-11] VITALS: BP 160/104; PULSE 90; RESP 20; TEMP 99; O2SAT 97
[2016-10-11 04:00] VITALS: BP 121/87; PULSE 71; RESP 20; TEMP 98.2; O2SAT 95
[2016-10-11] MEDS ORDERED: ISOSORBIDE MONONITRATE 30 MG TAB PO SCH (07:00)
[2016-10-11] MEDS: INSULIN ASPART SUPPLEMENTAL SCALE SQ SCH (07:00)
[2016-10-11] MEDS: ASPIRIN 325 MG TAB PO SCH (08:17)
[2016-10-11] MEDS: LOSARTAN 25 MG TAB PO SCH (08:17)
[2016-10-11] MEDS: SODIUM CHLORIDE 0.9% FLUSH 10 ML FLUSH IV FLUSH SCH (08:18)
[2016-10-11 08:41] VITALS: BP 120/78; PULSE 60; RESP 19; TEMP 96.4; O2SAT 96
--- NOTE | 2016-10-11 08:41 | HHI.PR ---
Subjective Remarks Patient was transferred to the main hospital for cath . No events reported overnight. Objective Vitals Vital Signs Date Time Temp Pulse Resp B/P Pulse Ox O2 Delivery O2 Flow Rate FiO2 10/11/16 04:00 98.2 71 20 121/87 95 10/10/16 23:58 69 10/10/16 20:00 97.8 72 20 123/88 95 10/10/16 16:00 97.0 70 18 154/80 99 10/10/16 12:00 97.5 68 18 123/74 98 I/O 10/10/16 10/10/16 10/10/16 10/11/16 10/11/16 10/11/16 07:00 15:00 23:00 07:00 15:00 23:00 Intake Total 240 ml 1250 ml 1200 ml 0 ml Output Total 2 ml Balance 238 ml 1250 ml 1200 ml 0 ml Intake Oral 240 ml 1250 ml 1200 ml 0 ml Output Urine Total 2 ml Stool Total 0 ml # Voids 5 6 2 3 # Bowel Movements 3 2 0 0 Result Diagram: 10/08/16220910/08/162209 Objective Remarks GENERAL: Very pleasant 56 yo F, well-developed, well-nourished, in no acute distress. alert and orientated CARDIAC: Regular rhythm, regular rate. S1/S2 are heard. No murmurs gallops or rubs. LUNGS: Clear to auscultation bilaterally. No wheeze, rhonchi or rales. No use of accessory muscles on inspiration or expiration. ABDOMEN: Soft, nontender. Nondistended. Bowel sounds heard in all 4 quadrants. No organomegaly or masses. Negative rebound, negative guarding EXTREMITIES: No edema, pulses are equal bilaterally. No cyanosis or clubbing NEUROLOGY: Mood and affect appear appropriate. Cranial nerves II through XII grossly intact. Muscle strength 5/5 in upper and lower extremities bilaterally. Deep tendon reflexes are 2+ in upper and lower extremities bilaterally. A/P Problem List: (1) Chest pain ICD Code: R07.9 Status: Acute (2) Hypertension ICD Code: I10 Status: Acute (3) Hyperlipidemia ICD Code: E78.5 Status: Acute (4) Diabetes ICD Code: E11.9 Status: Acute Assessment and Plan 56-year-old female who presented with chest pressure Chest pain Patient with increased risk factors include age, hypertension, hyponatremia, diabetes, family history of heart disease Patient had been ruled out for acute coronary event with serial cardiac enzymes have remained negative Serial EKGs show sinus rhythm with nonspecific ST-T changes without any acute changes Exercise stress test was interpreted by Dr. Thomas. He indicates this is a positive stress test and because of her presenting symptoms the patient should be admitted with cardiology consultation. Continue oxygen, aspirin, nitroglycerin as needed, [place] as needed for pain Consult cardiology, recommends cardiac cath. Transfer patient to [facility]. Keep NPO overnight plan for cardiac cath on 10/11 Hypertension Blood pressure stable Continue home medications Hyperlipidemia Patient is on fenofibrate at home Obtain lipid panel Diabetes Accu-Cheks with sliding scale insulin DVT prevention Sequential compression devices Discussed Condition With Patient, nurse, /family at bedside Problem Qualifiers (1) Chest pain: (2) Hypertension: Qualified Code: I15.8 - Other secondary hypertension (3) Hyperlipidemia: Qualified Code: E78.5 - Hyperlipidemia, unspecified hyperlipidemia type (4) Diabetes: Qualified Code: E11.8 - Type 2 diabetes mellitus with complication, without long-term current use of insulin Inna Erazo MD Oct 11, 2016 08:41
[2016-10-11] MEDS ORDERED: amLODIPine BESYLATE 5 MG TAB PO SCH (09:00)
[2016-10-11] MEDS ORDERED: HEPARIN-NS/PF INJ 500 ML ONE (11:36)
[2016-10-11] MEDS ORDERED: MIDAZOLAM HCL 2 MG/2 ML VIAL ONE (12:01)
--- NOTE | 2016-10-11 12:07 | CATHPROC ---
[employer] HIS Report Study Information Study Number Admission Scheduled Start Study Start [id number] Oct 08 2016 11:26PM 10/10/2016 Oct 11 2016 11:14AM [place] [facility] Cardiac Catheterization Admit Source Facility Department Emergency department [facility] - [facility] Physician and Clinical Staff Initial MD Ayala, Paul Sawmill Moulder Operatorpetar Mittal RN, Yoel Sawmill Moulder OperatorBryanna Hanna BSRN Recorder Sis Gayle,(R) (BS) Scrub Fernie Gonzalez RCIS(BS) Procedures Performed Procedure Location (Site) Vessel Name Coronary Angiograms LCA Left Coronary Coronary Angiograms RCA Right Coronary L Heart Cath Equipment Time Event Sales Assistant Description Size Mfg Part Number Used/Scraped TRANSDUCER, TRUWAVE [id number] 11:19 CHAWLA ZELAYA * Used W/STOCKCOCK *[id number] *[id number] *[id number] 11:19 Vello App PACK, CCL CUSTOM * Used *[id number] 11:19 Vello App SUPPORT, ARTERIAL ADULT [id number] Used BAND, RADIAL COMPRESSION TR [id number] 11:58 Tipp24 MEDICAL 24CM Used SHORT 24 *[id number] 11:19 Instant Opinion WIRE, EXCHANGE 260CM 3MMJ 260CM Used *[id number] 11:19 NAMIC MANIFOLD, 4 PORT * Used *[id number] 11:19 NYCOMED OMNIPAQUE, 350 MG, 150ML 150ML [id number] Used [id number] 11:19 [employer] MEDICAL BLANKET,WARM AIR CCL * Used *[id number] SHEATH, FR6 TRANSRADIAL 11:19 GoodChime! MEDICAL FR 6 [id number] Used SLENDER 10CM History: Current Medications Medication Dosage/Unit Route Frequency Last Date/Time Taken Beta Sanchez Statins (any) ASA History: Allergies Allergy Reaction Labetalol LIVER ISSUES Methyldopa LIVER ISSUES Morphine SWELLING Omeprazole Hives Ranitidine Hives LOVAZA History: Risk Factors Family History of Hypertension Dyslipidemia Previous MN Previous Heart Failure Premature CAD Yes Yes Yes No No Prior Valve Prior PCI Prior CABG Surgery No No No Cerebrovascular Peripheral Artery Chronic Lung On Dialysis Diabetes Diabetes Therapy Disease Disease Disease No No No No Yes Oral History: Stress Tests Stress or Imaging Studies Performed Yes Standard Exercise Stress Test No Stress Echo No Stress Test SPECT Yes Stress Test CMR No Cardiac CTA Coronary Calcium Score No No History: Other Current Smoker No Labs Hgb (g/dl) Hct (%) WBC (l/cumm) Platelets (thousands) 11.60-17.00 35.00-51.00 4.00-11.00 150.00-450.00 14.0 40.8 6.1 148 Glucose (mg/dl) BUN (mg/dl) Creatinine (mg/dl) BUN:Creatinine (1:x) 74.00-106.00 7.00-18.00 0.50-1.30 10.00-20.00 252 13 0.7 18.6 Na (meq/l) K (meq/l) 136.00-145.00 3.50-5.10 144 3.5 INR (PTT:PT) 0.90-1.10 1 Troponin I (ng/ml) CPK-MB (ng/ML) 0.02-0.05 0.50-3.60 0.02 Not Drawn Medication Medication Total Dose (Bolus/Oral) Medication Total Dosage/Unit 1% XYLOCAINE 1 mL FENTANYL 50 mcg RADIAL COCKTAIL 1 units VERSED 1 mg Medications (Bolus/Oral) Medication Time Given Dosage/Unit Administered By Reason VERSED 10/11/2016 11:40:07 AM 0.5 mg Rittenour, Bryanna 0.5 mg VERSED given in lab by Bryanna Rush BSRN in Left Antecubital via Peripheral IV. FENTANYL 10/11/2016 11:41:16 AM 25 mcg Rittenour, Bryanna 25 mcg FENTANYL given in lab by Bryanna Rush BSRN in Left Antecubital via Peripheral IV. 1% XYLOCAINE 10/11/2016 11:42:33 AM 1 mL Paul Ayala 1 mL 1% XYLOCAINE given in lab by Paul Ayala in Right Radial via Subcutaneous. VERSED 10/11/2016 11:44:32 AM 0.5 mg Rittenour, Bryanna 0.5 mg VERSED given in lab by Bryanna Rush BSRN in Left Antecubital via Peripheral IV. Ntg 200mcg Verapamil 2.5mg Heparin RADIAL COCKTAIL 10/11/2016 11:44:32 AM 1 units Paul Ayala 3000U 1 units RADIAL COCKTAIL given in lab by Paul Ayala via Radial. Reason: Ntg 200mcg Verapamil 2. 5mg 3600 Heparin FENTANYL 10/11/2016 11:45:56 AM 25 mcg Bryanna Rush 25 mcg FENTANYL given in lab by Bryanna Rush BSRN in Left Antecubital via Peripheral IV. Medication (Drip) Medication Time Given Dosage/Unit Concentration/Unit Diluent (ml) Solution IV Solutions 10/11/2016 11:15:25 AM 0 mL (IV) 500 NaCl .9 IV Solutions given in lab by Yoel Mittal RN in Left Antecubital via Peripheral IV. Pump/Drip Flow = 20 ml/hr using NaCl .9. Initial Case Assessment Cardiovascular HR Rhythm NIBP Chest Pain 72 reg 127/73 0 Edema Present Skin color Skin None Normal Warm Dry Circulatory - Right Pulses Dorsalis Pedis Femoral Radial 1 1 1 Scale (0,1,2,3,4,d) Scale (0,1,2,3,4,d) Circulatory - Lower Extremities Color Lower Right Color Lower Left Normal Normal Neurological State Oriented to time-place- Alert Moves all extremities person Respiration - General Respiration Rate SpO2 (%) (B/min) 8 99 Chronological Log Time Study Chronological Log 11:15:08 Patient arrived via Bed. 11:15:09 Patient Name, D.O.B, / Armband Verified By R.N. 11:15:10 Consent signed by the physician and the patient and verified by the [facility] staff. 11:15:11 Pre-op and post- op instructions given; patient acknowledges understanding of instruction s. 11:15:12 Verbal Stimulation=2 Physical Stimulation=2 Airway=2 Respiration=2 TOTAL=8. (0=absent, 1= limited, 2=present) 11:15:13 Presedation assessment performed by Music [facility] RN. 11:15:16 Allens test performed on the right radial and ulnar artery. 11:15:20 Patient has been NPO for More than 6Hrs. 11:15:21 Skin Breakdown none per pt 11:15:22 Patient Warmer Placed on the Table. 11:15:24 Maida Prominences Protected 11:15:24 A # 20 IV was noted in the Antecubital (left). Grade = 0 IV Solutions given in lab by Yoel Mittal RN in Left Antecubital via Peripheral IV. Pump/Drip Flow = 20 ml/hr using NaCl 11:15:25 .9. 11:15:26 History and physical on the chart or being dictated. Assessment: Initial Case, HR=72 BPM, Rhythm=reg, EIDF=329/73 mmhg, Chest Pain=0, Edema=None, Co meg=Normal, Skin = Warm, Dry Right Pulses: Jason Ped=1, Femoral=1, Radial=1 11:15:27 Lower Right Extremities: Color=Normal Lower Left Extremities: Color=Normal Neurological: State=Alert, Ox3, MARTEL Respiration: Resp=8 B/min, SpO2=99 % Vitals capture started with the following parameters, Patient=Adult, Interval=5 min, Initial Pr qqltpd=590 mmHg, 11:20:16 Deflation Rate=5 mmHg 11:20:56 FKHN=624/73 mmhg, SpO2=98.0 %, Pain=0, Alex=10, Watters=2 11:22:51 Reference ECG taken 11:25:49 HR=77 bpm, XASO=171/82 mmhg, SpO2=99.0 %, Resp=21 B/min, Pain=0, Alex=10, Watters=2 11:30:05 Right groin and right radial prepped with 2% chlorhexidine, and with a 3 min. waiting time. 11:30:52 HR=65 bpm, QNCL=796/72 mmhg, SpO2=99.0 %, Resp=11 B/min, Pain=0, Alex=10, Watters=2 11:36:28 HR=65 bpm, KKFT=170/66 mmhg, EjP1=769.0 %, Resp=9 B/min, Pain=0, Alex=10, Watters=2 11:37:54 Pressure channel 1 zeroed. Time Out. Correct patient, correct procedure,correct physician, power injector not loaded with contrast with surgical 11:39:55 team present. Time Out Concurred by MD, individual staff in procedure 11:40:07 0.5 mg VERSED given in lab by Bryanna Rush BSRN in Left Antecubital via Peripheral IV. 11:40:25 Case Start 11:40:50 HR=83 bpm, OWPO=584/86 mmhg, SpO2=99.0 %, Resp=9 B/min, Pain=0, Alex=10, Watters=2 11:41:16 25 mcg FENTANYL given in lab by Bryanna Rush BSRN in Left Antecubital via Peripheral I V. 11:42:33 1 mL 1% XYLOCAINE given in lab by Paul Ayala in Right Radial via Subcutaneous. 11:43:36 Access site was right Radial Artery. A SHEATH, FR6 TRANSRADIAL SLENDER 10CM FR 6 was advanced into the Radial (right) using the Perc utaneous 11:43:48 technique. 11:44:32 0.5 mg VERSED given in lab by Bryanna Rush BSRN in Left Antecubital via Peripheral IV. 1 units RADIAL COCKTAIL given in lab by Paul Ayala via Radial. Reason: Ntg 200mcg Verapa mil 2.5mg 3600 11:44:32 Heparin 11:45:55 HR=83 bpm, XQKA=833/80 mmhg, DsH2=311.0 %, Resp=6 B/min, Pain=0, Alex=10, Watters=2 11:45:56 25 mcg FENTANYL given in lab by Bryanna Rush BSRN in Left Antecubital via Peripheral I V. A JR 4.0 INFINITI CATHETER FR 5 was advanced over a wire. OMNIPAQUE, 350 MG, 150ML 150ML was us ed for 11:46:03 injections. Recorded Pressure: LV, HR=78, Condition=Condition 1 11:47:01 (Left Ventricle) LV 113/5/7 Recorded Pressure: LV, Ao, HR=76, Condition=Condition 1 11:47:12 (Left Ventricle) LV 114/5/8, (Aorta) Ao 129/79/100 11:47:41 The RCA was injected and visualized at various angles. OMNIPAQUE, 350 MG, 150ML 150ML used . Recorded Pressure: Ao, HR=71, Condition=Condition 1 11:47:49 (Aorta) Ao 109/74/90 After removing the current catheter a JL 3.5 INFINITI CATHETER FR 5 was advanced over a WIRE, E XCHANGE 260CM 11:48:33 3MMJ 260CM. 11:50:45 The LCA was injected and visualized at various angles. OMNIPAQUE, 350 MG, 150ML 150ML used . 11:50:50 HR=70 bpm, BLVV=371/64 mmhg, SpO2=98.0 %, Resp=8 B/min, Pain=0, Alex=10, Watters=2 11:51:58 Catheter was removed 11:56:28 HR=66 bpm, VETY=687/73 mmhg, SpO2=99.0 %, Resp=9 B/min, Pain=0, Alex=10, Watters=2 Radial Compression Device Used. 10 mLs of air placed in BAND, RADIAL COMPRESSION TR SHORT 24 24 CM. Affected 11:57:01 hand 100 % O2 saturation. 11:58:02 Case End 11:58:20 No case complications noted. 11:58:29 Cine recording checked. 11:58:31 Bedside Report will be given. 11:58:35 Contrast Scanned 11:58:37 A Left Heart Cath was performed. 11:58:44 DOCU called. Spoke to [place] 11:58:55 Catheter(s) removed without difficulty 12:02:[facility] - Contrast Media Used In Study Contrast Total Opened (mL) Total Used (mL) Total Wasted (mL) Omnipaque 25 25 0 End Study - Maximum Contrast Load Max Contrast Load (mL) 639.9 End Study - Radiation Exposure Fluoro Time (minutes) 1.9 End Study - Sheaths Sheaths Pulled By Sheath Hold Time (min) Paul Ayala End Study - Patient Disposition Complications Transferred To Interventional Outcome No [facility] Holding No attempt made
[2016-10-11] MEDS ORDERED: MISC INFORMATION XX ONE (12:15)
[2016-10-11] MEDS ORDERED: VERAPAMIL HCL 5 MG/2 ML VIAL ONE (12:39)
[2016-10-11] MEDS ORDERED: NITROGLYCERIN INJ 5 ML ONE (12:40)
[2016-10-11] MEDS ORDERED: HEPARIN SODIUM - IV 10,000 UNITS/10 ML VIAL ONE (12:40)
[2016-10-11] MEDS ORDERED: ISOS30TA3 PO (12:50)
[2016-10-11] MEDS ORDERED: AMLO5 PO (12:50)
[2016-10-11] MEDS ORDERED: ASPI81CH25 CHEW (12:50)
[2016-10-11] MEDS ORDERED: NITR0.4S SL (12:50)
--- NOTE | 2016-10-11 12:50 | HHI.DS ---
Discharge Summary Admission Date Oct 09, 2016 at 12:00 Discharge Date: Oct 11, 2016 Admitting Diagnosis CHEST PAIN (1) Chest pain ICD Code: R07.9 Diagnosis: Principal (2) Hypertension ICD Code: I10 Diagnosis: Secondary (3) Hyperlipidemia ICD Code: E78.5 Diagnosis: Secondary (4) Diabetes ICD Code: E11.9 Diagnosis: Secondary Procedures cardiac cath 10/11/16 Brief History - From Admission Written by Garrett Shrestha, acting as scribe for Dr. Erazo on 10/09/16 at 09: 46. This note was transcribed by scribKalee POE. I, Dr. Inna Erazo personally performed the history, physical exam, and medical decision making; and confirmed the accuracy of the information in the transcribed note. Authenticated by Dr. Inna Erazo on 10/09/16 at 09:46. 56-year-old female with known history of hypertension, hypokalemia, diabetes, family history of heart disease who presented to the hospital because of chest discomfort. Patient states that over the last week she's been having episodes of chest discomfort which she places her hand over the middle part of her chest and states that the discomfort is located there without any radiation to neck, back, shoulder, arm. She has a hard time describing the discomfort other than she states it's like a pressure type sensation that takes her breath away. She is able to breathe there is no shortness of breath, however she does have dyspnea. It usually lasts for 20 seconds at a time and happening one time daily for the last week. She states that she had another episode yesterday that lasted up to 20 minutes. She called her primary medical doctor's office who did not have an appointment for her and notify her if it continued happens she needs to go to the hospital for evaluation. The patient states that she sits down and relaxes that the discomfort goes away on its own. It does not happen during exertion. She denies any nausea, vomiting, diaphoresis, lightheadedness, dizziness. She states that he exercises approximate 5 times weekly. The patient has never underwent any cardiac stress testing. Patient does have increased risk factors for coronary artery disease and is recommended by the ER physician that the patient be observed in the chest pain center for further evaluation. CBC/BMP: 10/08/16220910/08/162209 Significant Findings Laboratory Tests Test 10/08/16 10/08/16 10/09/16 22:10 23:40 02:20 Monocytes (%) (Auto) 8.4 % (0.0-8.0) Eosinophils (%) (Auto) 4.3 % (0.0-4.0) Estimat Glomerular Filtration 82 ML/MIN (>89) Rate Random Glucose 252 MG/DL (74-106) Troponin I LESS THAN 0.02 LESS THAN 0.02 LESS THAN 0.02 NG/ML NG/ML NG/ML (0.02-0.05) (0.02-0.05) (0.02-0.05) Triglycerides Level 253 MG/DL (42-150) Cholesterol Level 212 MG/DL (120-200) LDL Cholesterol 113 MG/DL (0-99) Imaging Last Impressions Chest X-Ray 10/08/162209 Signed Impressions: Service Date/Time: Saturday, October 08, 2016 22:28 - CONCLUSION: No acute disease. Jai Franklin MD FACR PE at Discharge GENERAL: Very pleasant 56 yo F, well-developed, well-nourished, in no acute distress. alert and orientated CARDIAC: Regular rhythm, regular rate. S1/S2 are heard. No murmurs gallops or rubs. LUNGS: Clear to auscultation bilaterally. No wheeze, rhonchi or rales. No use of accessory muscles on inspiration or expiration. ABDOMEN: Soft, nontender. Nondistended. Bowel sounds heard in all 4 quadrants. No organomegaly or masses. Negative rebound, negative guarding EXTREMITIES: No edema, pulses are equal bilaterally. No cyanosis or clubbing NEUROLOGY: Mood and affect appear appropriate. Cranial nerves II through XII grossly intact. Muscle strength 5/5 in upper and lower extremities bilaterally. Deep tendon reflexes are 2+ in upper and lower extremities bilaterally. Pt update on day of discharge No events reported overnight. Patient was transferred to the main hospital for cath. Per cardiology patient had a clean cath and is cleared for DC . Patient feels comfortable to go home. Hospital Course 56-year-old female who presented with chest pressure Chest pain Patient with increased risk factors include age, hypertension, hyponatremia, diabetes, family history of heart disease Patient had been ruled out for acute coronary event with serial cardiac enzymes have remained negative Serial EKGs show sinus rhythm with nonspecific ST-T changes without any acute changes Exercise stress test was interpreted by Dr. Thomas. He indicates this is a positive stress test and because of her presenting symptoms the patient should be admitted with cardiology consultation. Continue oxygen, aspirin, nitroglycerin as needed, [place] as needed for pain Consult cardiology, recommends cardiac cath. Transfer patient to [facility]. Keep NPO overnight plan for cardiac cath on 10/11. S/P cardiac cath clean per cardiology. Patient to be discharge home to follow up as OP with PCP and consultants. Hypertension Blood pressure stable Continue home medications Hyperlipidemia Patient is on fenofibrate at home Obtain lipid panel Diabetes Accu-Cheks with sliding scale insulin DVT prevention Sequential compression devices Improved, had a clean cath , cleared by cardio for DC . To follow up as OP with PCP and consultants. Pt Condition on Discharge: Stable Discharge Disposition: Discharge Home Discharge Time: > 30 minutes Discharge Instructions DIET: Follow Instructions for: Heart Healthy Diet Activities you can perform: Regular-No Restrictions Follow up Referrals: Cardiology - 2 Weeks PCP Follow-up - 3-5 Days New Medications: Amlodipine (Norvasc) 5 Mg Tab 2.5 MG PO DAILY Blood Pressure Management #30 TAB Aspirin (Aspirin Low Strength) 81 Mg Chew 81 MG CHEW DAILY Blood Clot Prevention #30 EA Isosorbide Mononitrate ER (Isosorbide Mononitrate ER) 30 Mg Flakita 30 MG PO DAILY@07 Blood Pressure Management #30 TAB Nitroglycerin SL (Nitrostat SL) 0.4 Mg Subl 0.4 MG SL Q5M PRN CHEST PAIN #30 PATCH Continued Medications: Diphenhydramine (Diphenhydramine) 25 Mg Tab 25 MG PO Q6H PRN ALLERGIES Ref 0 TAB Epinephrine Inj (Epinephrine Inj) 0.3 Mg/0.3 Ml Pfpen 0.3 MG IM ONCE PRN ALLERGIC REACTION #1 Ref 0 PEN Lactobacillus Acidophilus (Probiotic) 1 Cap Cap 1 CAP PO BID Nutritional Supplement #90 Ref 0 CAP Metformin (Metformin) 500 Mg Tab 500 MG PO BIDPC With meals Blood Sugar Management #60 Ref 0 TAB Multiple Vitamin (Multiple Vitamin) 1 Tab 1 TAB PO DAILY Nutritional Supplement Ref 0 TAB Telmisartan (Telmisartan) 20 Mg Tab 20 MG PO DAILY Blood Pressure Management #30 Ref 0 TAB Inna Erazo MD Oct 11, 2016 12:50
--- NOTE | 2016-10-11 13:50 | HHI.DCPOC ---
Discharge Care Plan Diagnosis: (1) Chest pain (2) Hypertension Goals to Promote Your Health * To prevent worsening of your condition and complications * To maintain your health at the optimal level Directions to Meet Your Goals Take your medications as prescribed Follow your dietary instruction Follow activity as directed Keep your appointments as scheduled Take your immunizations and boosters as scheduled If your symptoms worsen call your PCP, if no PCP go to Urgent Care Center or Emergency Room Smoking is Dangerous to Your Health. Avoid second hand smoke Call the 24-hour hour crisis hotline for domestic abuse at Alicia Starkey MD Oct 11, 2016 13:50
--- NOTE | 2016-10-11 13:54 | HHI.DS ---
Discharge Summary Admission Date Oct 09, 2016 at 12:00 Discharge Date: Oct 11, 2016 Admitting Diagnosis CHEST PAIN (1) Chest pain ICD Code: R07.9 Diagnosis: Principal (2) Hypertension ICD Code: I10 Diagnosis: Secondary (3) Hyperlipidemia ICD Code: E78.5 Diagnosis: Secondary (4) Diabetes ICD Code: E11.9 Diagnosis: Secondary Procedures cardiac cath 10/11/16 Brief History - From Admission 56-year-old female with known history of hypertension, hypokalemia, diabetes, family history of heart disease who presented to the hospital because of chest discomfort. Patient states that over the last week she's been having episodes of chest discomfort which she places her hand over the middle part of her chest and states that the discomfort is located there without any radiation to neck, back, shoulder, arm. She has a hard time describing the discomfort other than she states it's like a pressure type sensation that takes her breath away. She is able to breathe there is no shortness of breath, however she does have dyspnea. It usually lasts for 20 seconds at a time and happening one time daily for the last week. She states that she had another episode yesterday that lasted up to 20 minutes. She called her primary medical doctor's office who did not have an appointment for her and notify her if it continued happens she needs to go to the hospital for evaluation. The patient states that she sits down and relaxes that the discomfort goes away on its own. It does not happen during exertion. She denies any nausea, vomiting, diaphoresis, lightheadedness, dizziness. She states that he exercises approximate 5 times weekly. The patient has never underwent any cardiac stress testing. Patient does have increased risk factors for coronary artery disease and is recommended by the ER physician that the patient be observed in the chest pain center for further evaluation. CBC/BMP: 10/08/16220910/08/162209 Significant Findings Laboratory Tests Test 10/08/16 10/08/16 10/09/16 22:10 23:40 02:20 Monocytes (%) (Auto) 8.4 % (0.0-8.0) Eosinophils (%) (Auto) 4.3 % (0.0-4.0) Estimat Glomerular Filtration 82 ML/MIN (>89) Rate Random Glucose 252 MG/DL (74-106) Troponin I LESS THAN 0.02 LESS THAN 0.02 LESS THAN 0.02 NG/ML NG/ML NG/ML (0.02-0.05) (0.02-0.05) (0.02-0.05) Triglycerides Level 253 MG/DL (42-150) Cholesterol Level 212 MG/DL (120-200) LDL Cholesterol 113 MG/DL (0-99) Imaging Last Impressions Chest X-Ray 10/08/160 Signed Impressions: Service Date/Time: Saturday, October 08, 2016 22:28 - CONCLUSION: No acute disease. Jai Franklin MD FACR PE at Discharge GENERAL: Very pleasant 56 yo F, well-developed, well-nourished, in no acute distress. alert and orientated CARDIAC: Regular rhythm, regular rate. S1/S2 are heard. No murmurs gallops or rubs. LUNGS: Clear to auscultation bilaterally. No wheeze, rhonchi or rales. No use of accessory muscles on inspiration or expiration. ABDOMEN: Soft, nontender. Nondistended. Bowel sounds heard in all 4 quadrants. No organomegaly or masses. Negative rebound, negative guarding EXTREMITIES: No edema, pulses are equal bilaterally. No cyanosis or clubbing NEUROLOGY: Mood and affect appear appropriate. Cranial nerves II through XII grossly intact. Muscle strength 5/5 in upper and lower extremities bilaterally. Deep tendon reflexes are 2+ in upper and lower extremities bilaterally. Pt update on day of discharge f/u for chest pain patient seen after cardiac catheterization. she stated she feels a lot better. Denied any CP, SOB, palpitations, or lightheadedness/dizziness. Hospital Course 56-year-old female who presented with chest pressure Chest pain Patient with increased risk factors include age, hypertension, hyponatremia, diabetes, family history of heart disease Patient had been ruled out for acute coronary event with serial cardiac enzymes have remained negative Serial EKGs show sinus rhythm with nonspecific ST-T changes without any acute changes Exercise stress test was interpreted by Dr. Tohmas. He indicates this is a positive stress test and because of her presenting symptoms the patient should be admitted with cardiology consultation. patient had cardiac catheterization which was a clean cath. Hypertension patient was started on amlodipine. Hyperlipidemia Patient is on fenofibrate at home l Diabetes Accu-Cheks with sliding scale insulin Pt Condition on Discharge: Stable Discharge Disposition: Discharge Home Discharge Time: <= 30 minutes Discharge Instructions DIET: Follow Instructions for: Heart Healthy Diet Activities you can perform: Regular-No Restrictions Follow up Referrals: Cardiology - 2 Weeks PCP Follow-up - 3-5 Days New Medications: Amlodipine (Norvasc) 5 Mg Tab 2.5 MG PO DAILY Blood Pressure Management #30 TAB Continued Medications: Diphenhydramine (Diphenhydramine) 25 Mg Tab 25 MG PO Q6H PRN ALLERGIES Ref 0 TAB Epinephrine Inj (Epinephrine Inj) 0.3 Mg/0.3 Ml Pfpen 0.3 MG IM ONCE PRN ALLERGIC REACTION #1 Ref 0 PEN Lactobacillus Acidophilus (Probiotic) 1 Cap Cap 1 CAP PO BID Nutritional Supplement #90 Ref 0 CAP Metformin (Metformin) 500 Mg Tab 500 MG PO BIDPC With meals Blood Sugar Management #60 Ref 0 TAB Multiple Vitamin (Multiple Vitamin) 1 Tab 1 TAB PO DAILY Nutritional Supplement Ref 0 TAB Telmisartan (Telmisartan) 20 Mg Tab 20 MG PO DAILY Blood Pressure Management #30 Ref 0 TAB Alicia Starkey MD Oct 11, 2016 13:54
[2016-10-11] MEDS ORDERED: IOHEXOL 350 MG/ML 50 ML BTL (for Cath Lab) OTHER ONE (15:55)
--- NOTE | 2016-10-12 07:34 | MB ---
cc: PAUL CASTANEDA DO DATE OF CONSULTATION October 11, 2016 REASON FOR CONSULTATION Interventional cardiology consideration of cardiac catheterization. HISTORY OF PRESENT ILLNESS Asha Carmona is a pleasant 56-year-old female who presented to [facility] Emergency Room due to chest pain on October 08, 2016. She states that she gets a feeling that her heart drops out of her chest which lasts about 10 minutes. The feeling seems to be associated with after eating. She does not associate the symptoms with water aerobics or other physical activity. The other day before arriving to the hospital she states that the episode lasted for over 20 minutes. It was decided that she should undergo treadmill exercise stress testing and during this her nonspecific ST-T wave changes were accentuated to about 1-mm downsloping ST-T wave changes. She was also found to have PVCs in recovery. Because of this she was recommended cardiac catheterization. PAST MEDICAL HISTORY 1. Hypertension. 2. Diabetes mellitus. 3. Obesity. PAST SURGICAL HISTORY 1. Cholecystectomy. 2. . 3. Bilateral carpal tunnel surgery. 4. Endometrial ablation. ALLERGIES LOVAZA LABETALOL. METHYLDOPA. MORPHINE. OMEPRAZOLE. RANITIDINE. MEDICATIONS 1. Telmisartan 20 mg daily. 2. Probiotics b.i.d. 3. Metformin 500 mg b.i.d. 4. Norvasc 2.5 mg daily. 5. Diphenhydramine 25 mg every 6 hours as needed for allergies. FAMILY HISTORY Denies premature coronary artery disease or sudden cardiac within the family. SOCIAL HISTORY The patient denies tobacco or illicit drug abuse. She does drink occasionally. REVIEW OF SYSTEMS 14-systems were reviewed including osteopathic pertinent positives and negatives above, otherwise negative. PHYSICAL EXAMINATION VITAL SIGNS: Temperature 96.4, heart rate 60, blood pressure 120/78, respirations 19, pulse ox 96% on room air. IN GENERAL: The patient appears well, in no acute distress, alert, awake and oriented x 3. Extraocular muscles intact. Mucous membranes moist. NECK: Supple. No JVD at 45 degrees. No carotid bruits heard bilaterally. Carotid upstrokes brisk in nature. HEART: Regular rate and rhythm. Positive first and second heart sounds with no noted murmurs, gallops or rubs. PMI is nondisplaced. LUNGS: Clear to auscultation bilaterally. No wheezes, rales or rhonchi. ABDOMEN: Soft, nontender, nondistended. No organomegaly noted. EXTREMITIES: No clubbing, cyanosis or edema. Femoral and distal pulses intact bilaterally. NEUROLOGICALLY: No focal deficits. OSTEOPATHICALLY: No kyphoscoliosis. Mild lordosis. No paraspinal tender points. LABORATORY FINDINGS Hemoglobin 14.0, hematocrit 40.8, platelets 198, potassium 3.5, BUN 13, creatinine 0.74, magnesium 1.7. Total cholesterol 212, LDL 113, HDL 48.3, triglycerides 253. IMPRESSIONS 1. Atypical chest pain. 2. Abnormal exercise nuclear stress test with 1-mm ST depressions, downsloping in multiple leads. 3. Hypertension 4. Diabetes mellitus. RECOMMENDATIONS 1. Ms. Carmona originally presented with atypical chest pain and because of this she was recommended stress testing. During stress testing, she was found to have 1-mm downsloping ST changes in multiple leads. I agree with recommendation by Dr. [place] to consider nuclear stress testing but the patient does not want to have this and wants to undergo cardiac catheterization. 2. The risks, benefits and alternatives were explained to her about cardiac catheterization and/or intervention and she consents as such. 3. We will plan a right radial approach. 4. If no significant disease is found, should consider GI workup as it appears that the episodes happened post-meal. 5. Further recommendations will be made after coronary visualization. Paul Castaneda DO VGP/SSB /10:59 PM /7:12 AM
--- NOTE | 2016-10-12 08:02 | MA ---
cc: PAUL CASTANEDA DO DATE 10/11/2016 PROCEDURE Left heart catheterization, coronary angiogram, moderate sedation 15 minutes. PREPROCEDURE DIAGNOSIS Abnormal stress test, chest pain. POSTPROCEDURE DIAGNOSIS Minimal coronary artery disease. MEDICATIONS 1. Verapamil 2.5 mg 2. Nitro 200 mcg 3. Heparin 3600 units 4. Versed 1 mg 5. Fentanyl 20/650 mcg CONTRAST 25 cc FLUOROSCOPY 1.9 minutes ANESTHESIA Moderate sedation 15 minutes ESTIMATED BLOOD LOSS 10 cc PROCEDURAL SUMMARY Asha Carmona is a pleasant 56-year-old female who originally presented with chest pain. She underwent exercise stress testing and during this she had ST depressions and recommended further workup. She was offered nuclear stress testing, but denied and so recommendation was for cardiac catheterization. The risks, benefits, and alternatives were explained to her and she consents as such. She was brought to the lab and prepped in the usual sterile fashion. The right radial artery was accessed using a modified Seldinger technique and placement of a 5/6 Cymro slender sheath. This was easily aspirated and flushed. JR-4 catheter was advanced over a J-wire to the ascending aorta and across the aortic valve for measurement of left ventricular pressures. This was pulled back across the aortic valve showing no significant gradient of aortic stenosis. JR-4 was used for selective angiography of the right coronary system. This was exchanged out for a JL-3.5 which was used for selective angiography of the left coronary system. JL-3.5 was removed over a J-wire. A radial band was placed across the arteriotomy site for hemostasis. The patient left the [facility] cardiovascularly stable. FINDINGS Left main normal size vessel with good reflux. No significant disease noted. It bifurcates into an LAD and circumflex. LAD normal-size vessel with 20% ostial stenosis. Overall, no significant disease throughout. It has two major diagonals with no significant disease. Left circumflex is a large vessel which is dominant in nature. It has no significant disease. It gives off three major obtuse marginals as well as the PDA. Overall, the obtuse marginals and PDA had no significant disease. RCA is a nondominant vessel with no significant disease. IMPRESSION 1. Atypical chest pain. 2. Minimal coronary artery disease as above. RECOMMENDATIONS 1. Asha Carmona presented with atypical chest pain and underwent cardiac catheterization with minimal disease as above. 2. She will be discharged today per the primary team. 3. She may need a gastrointestinal workup as her symptoms appears to correlate more with eating and this can be done in the outpatient setting. Thank you for allowing me to see Asha Carmona. If there are any questions, please do not hesitate to call. Paul Castaneda DO VGP/DJL /11:35 PM /7:59 AM
--- NOTE | 2016-10-12 08:56 | TR ---
Date Performed: 10/09/2016 Time Performed: 10:02:00 DOCTOR: Tapan Thomas DRUG LIST: CLINICAL HISTORY: REASON FOR TEST: REASON FOR ENDING: Completed Protocol OBSERVATION: Chest Pain: None CONCLUSION: Patient tolerated BENJAMÍN protocol with Total Exercise Time=6:01 Maximum NI=186 % Max HR Achieved=88.0% Maximum HJ=376/84, Testing stopped secondary to goals acheived. Patient had mild fl at slow upsloping ST depressions prior to starting procedure, did improve mildly upon starting proced ure. During peak exercise, patient had flat slow upsloping ST depressed segments in inferior lateral leads. patient was asymptomatic during exercise, frequent PVC's noted. HR and BP appropriate response to exercise. Recovery period, patient still with mild flat, slow upsloping St segments, Patient stil l asymptomatic. more frequent PVC's until HR returned to baseline, then no observed PVC's. BP returne d to baseline COMMENTS: POSITIVE STUDY WITH DOWNSLOPING ST SEGMENTS WORSTENING WITH EXERCISE IN A PATIENT WITH RISK FACTORS AND INTERMITTANT CP.
[2016-10-12] MEDS ORDERED: ASPIRIN 81 MG CHEW TAB CHEW SCH (09:00)
== END 2016-10-11 15:10 | disposition home or self-care (01) | DRG 287 ==
LOC: PHED 21:36 → PHEDA 23:26 → PH3A 10-09 00:47 → OBSVTOIN 10-09 12:00 → HDIC 10-11 10:34
PROVIDERS: ADMIT Family Medicine; ATTEND Family Medicine
PROC: B2111ZZ Fluoroscopy of Multiple Coronary Arteries using Low Osmolar Contrast (ICD-10-PCS; 2016-10-11)
PROC: 4A023N7 Measurement of Cardiac Sampling and Pressure, Left Heart, Percutaneous Approach (ICD-10-PCS; principal; 2016-10-11 11:00)
DX: R07.89 Other chest pain (principal); I10 Essential (primary) hypertension; E78.5 Hyperlipidemia, unspecified; E11.9 Type 2 diabetes mellitus without complications; R06.00 Dyspnea, unspecified; K21.9 Gastro-esophageal reflux disease without esophagitis; I49.3 Ventricular premature depolarization; E66.9 Obesity, unspecified; I25.10 Atherosclerotic heart disease of native coronary artery without angina pectoris; Z68.31 Body mass index [BMI] 31.0-31.9, adult; Z79.84 Long term (current) use of oral hypoglycemic drugs; Z82.49 Family history of ischemic heart disease and other diseases of the circulatory system; Z88.5 Allergy status to narcotic agent
CPT/HCPCS: 71010; 80048; 80061; 82550; 82552; 82948; 83735; 84484; 85025; 85610; 85730; 93005; 93017; 93306; 93454; C1769; C1893; J1644; J1815; J2250; J3010; Q9967